=== PATIENT | female | born 1965 | race Caucasian/White ===

== ENCOUNTER 2016-08-04 23:14 | Inpatient (IN) | payer MEDICAID ==
[~2016-08-04] VITALS: Ht 147.3 cm; Wt 62.1 kg
[~2016-08-04 23:14] MED LIST: NORCO 5/325 MG1 TAB PO; ZOFRAN8 MG PO
[2016-08-04 23:31] VITALS: BP 160/60
[2016-08-05] VITALS (8 sets, daily range): BP systolic 89–132; BP diastolic 54–71
--- NOTE | 2016-08-05 00:33 | NUR ---
Patient to bed 07.
--- NOTE | 2016-08-05 00:34 | NUR ---
PATIENT PRESENTS TO ED WITH DIZZINESS AND FLANK PAIN X 1 WEEK . PT DENIES N/V/D; SKIN IS PINK/WARM/DRY; AAOX4 WITH EVEN AND STEADY GAIT; LUNGS CLEAR BL; HR EVEN AND REGULAR; PT DENIES ANY FEVER, CP, SOB, OR COUGH AT THIS TIME; PATIENT STATES PAIN OF 5/10 AT THIS TIME; VSS; PATIENT POSITIONED FOR COMFORT; HOB ELEVATED; BEDRAILS UP X2; BED DOWN. ER MD MADE AWARE OF PT STATUS.
--- NOTE | 2016-08-05 00:52 | NUR ---
Dr. Cruz evaluating patient at bedside.
[2016-08-05] MEDS ORDERED: NACL 0.9% 1,000 ML IV SCH ×3 (00:57→16:05)
[2016-08-05] MEDS ORDERED: KETOROLAC 30 MG/ML VIAL IVP ONE (01:00)
[2016-08-05] MEDS ORDERED: ONDANSETRON 4 MG/2 ML VIAL IVP ONE (01:00)
--- NOTE | 2016-08-05 01:27 | NUR ---
Patient taken to CT via wheelchair per tech.
--- NOTE | 2016-08-05 01:35 | NUR ---
Patient back from CT via wheelchair per tech.
[2016-08-05] MEDS ORDERED: LEVOFLOXACIN 500 MG/D5W PREMIX 100 ML IV ONE (02:05)
[2016-08-05] MEDS ORDERED: MORPHINE SULFATE 2 MG/ML SYR IVP PRN (04:10)
[2016-08-05] MEDS ORDERED: ONDANSETRON 4 MG/2 ML VIAL IVP PRN (04:10)
--- NOTE | 2016-08-05 04:25 | NUR ---
XRAY AT BEDSIDE.
--- NOTE | 2016-08-05 05:10 | NUR ---
Patient will be admitted to care of DR FONSECA. Admited to TELE 119A. Will go to room 119A . Belongings list completed. Report to LOIS GONZALES .
--- NOTE | 2016-08-05 05:14 | NUR ---
Patient being taken to telemetry 119A via jaime hobbs and RN.
[2016-08-05] MEDS: NACL 0.9% 1,000 ML IV SCH ×4 (06:00→22:27)
--- NOTE | 2016-08-05 06:15 | NUR ---
ADMITTED 51Y.O.F FROM ER.PLACED ON BED.ORIENTED TO ROOM.CALL SYSTEM EXPLAINED AND IN REACH.PT IS AWAKE ALERT AND ORIENTED.RESP.UNLABORED.TELEMETRY APPLIED AND SHOWING ST.SL PATENT IN RT.AC W/O REDNESS OR EDEMA AT SITE.IVF OF NS AT 100ML/H STARTED AND INFUSING WELL.INITIAL ASSESSMENT DONE.CARE PLAN DISCUSSED W/PT.VERBALIZED UNDERSTANDING.NO C/O PAIN AT TIME OF ADMISSION.VS STABLE.NO FEVER.SKIN IS INTACT.
--- NOTE | 2016-08-05 07:07 | NUR ---
RECEIVED PT FROM CHRISTIAN GRANT AWAKE AND LYING ON BED, AAOX4 YI SPEAKING, NO S/S OF RESPIRATORY DISTRESS OR DISCOMFORT, SKIN IS INTACT. WITH OV ACCESS ON RIGHT AC 20G INFUSING FLUIDS WELL. PT COMPLAINED OF PAIN AND NAUSEA. WILL MEDICATE WITH MORPHINE AND ZOFRAN. DISCUSSED PLAN OF CARE, PT VERBALIZED UNDERSTANDING. CALL LIGHT WITHIN REACH, WILL CONTINUE TO MONITOR.
--- NOTE | 2016-08-05 07:17 | NUR ---
REPORT GIVEN TO MARY RN.PT'S CONDITION IS STABLE.IVF IS IN PROGRESS.
--- NOTE | 2016-08-05 07:35 | NUR ---
MORPHINE AND ZOFRAN GIVEN VIA IVP, WILL REASSESS.
--- NOTE | 2016-08-05 09:28 | NUR ---
PT ASLEEP, ALL NEEDS MET AT THIS TIME. WILL CONTINUE TO MONITOR.
--- NOTE | 2016-08-05 10:31 | NUR ---
NOTIFIED DR. CARSON OF PATIENT'S HEARTRATE OF 127. MD TO SEE THE PATIENT.
[2016-08-05] MEDS: ACETAMINOPHEN 325 MG TAB PO PRN ×2 (11:46→20:08)
[2016-08-05] MEDS: HYDROcodone/APAP 5/325 MG 1 TAB TAB PO PRN ×2 (11:46→17:38)
--- NOTE | 2016-08-05 11:48 | NUR ---
PT TEMPERATURE AT 101.4F, TYLENOL GIVEN PRN. WITH DAUGHTERS AT BEDSIDE. COOLING MEASURES DONE. WILL CONTINUE TO MONITOR.
--- NOTE | 2016-08-05 11:50 | NUR ---
DR. CARSON NOTIFIED OF FEVER.
--- NOTE | 2016-08-05 13:22 | NUR ---
TEMPERATURE RECHECKED-- 99.7F. WILL CONTINUE TO MONITOR.
--- NOTE | 2016-08-05 15:10 | NUR ---
TEMPERATURE RECHECKED-- 98.7F. PT RESTING COMFORTABLY, NO COMPLAINTS AT THIS TIME. WILL CONTINUE TO MONITOR.
--- NOTE | 2016-08-05 15:45 | NUR ---
BP AT 89/54 MAP 66. LEGS ELEVATED, WILL RECHECK BP
--- NOTE | 2016-08-05 16:05 | NUR ---
BP RECHECKED-- . DR. CARSON INFORMED, WILL CARRY OUT NEW ORDERS.
--- NOTE | 2016-08-05 17:42 | NUR ---
NOTIFIED OF BP 114/65. WILL CARRY OUT NEW ORDERS. COMPLAINED OF PAIN, ADMINISTERED NORCO. WILL REASSESS
--- NOTE | 2016-08-05 17:46 | NUR ---
DR. VIVAS AT BEDSIDE.
--- NOTE | 2016-08-05 19:25 | NUR ---
ENDORSED PT TO SANJUANITA CORREA IN STABLE CONDITION FOR CONTINUITY OF CARE
--- NOTE | 2016-08-05 19:26 | NUR ---
RECD. RESTING IN BED, AWAKE, A/OX4. RESPIRATION EVEN AND UNLABORED. IV OF NS AT 150 ML/HR INFUSING, RIGHT AG G20. NO COMPLAINT OF PAIN 0/10. AMBULATORY TO THE BR. PLAN OF CARE FOR THE SHIFT DISCUSSED. VERBALIZED UNDERSTANDING. FAMILY AT THE BEDSIDE.
--- NOTE | 2016-08-05 19:59 | NUR ---
Patient's Plan of Care was discussed and reviewed with DRAMATIC COACH: SUNNY SÁNCHEZ
--- NOTE | 2016-08-05 20:08 | NUR ---
WITH FEVER, T - 101.1, MEDICATED WITH TYLENOL ORDERED. COOLING MEASURES APPLIED.
--- NOTE | 2016-08-05 21:10 | NUR ---
FEELING BETTER. TEMPERATURE - 99.0, WILL CONTINUE TO MONITOR.
--- NOTE | 2016-08-05 22:00 | NUR ---
AMBULATED FROM THE BR. TEMPERATURE CHECKED - 98.4.
[2016-08-06] VITALS: BP 146/65
--- NOTE | 2016-08-06 00:50 | NUR ---
WITH CHILLS, TEMPERATURE CHECKED BU ORAL THERMOMETER - 98.6. MADE COMFORTABLE WITH BLANKETS. WILL CONTINUE TO MONITOR.
[2016-08-06] MEDS: HYDROcodone/APAP 5/325 MG 1 TAB TAB PO PRN ×4 (00:59→23:07)
[2016-08-06 04:00] VITALS: BP 119/70
--- NOTE | 2016-08-06 04:00 | NUR ---
RESTING IN BED, AWAKE. TEMPERATURE - 99.5. DENIES PAIN 0/10.
[2016-08-06] MEDS: NACL 0.9% 1,000 ML IV SCH ×3 (05:28→19:52)
--- NOTE | 2016-08-06 07:15 | NUR ---
CONDITION REMAIN STABLE. ENDORSED TO CHRISTIAN ISRAEL FOR CONTINUITY OF CARE.
--- NOTE | 2016-08-06 07:20 | NUR ---
RECEIVED REPORT FROM SANJUANITA CORREA. PT IS A/OX4, AMBULATORY, IV RT AC, PATENT, INTACT, INFUSING WELL, SKIN IS INTACT, NO S/S OF RESPIRATORY DISTRESS OR DISCOMFORT NOTED, SAFETY/FALL PRECAUTIONS IN PLACE, DISCUSSED PLAN OF CARE WITH PT, PT VERBALIZED UNDERSTANDING, ORIENTED PT TO ROOM, CALL LIGHT WITHIN REACH, WILL CONTINUE TO MONITOR.
[2016-08-06] MEDS ORDERED: NACL 0.9% 500 ML IV SCH (07:25)
--- NOTE | 2016-08-06 07:43 | NUR ---
PATIENT HAS BEEN SCREENED AND CATEGORIZED HIGH NUTRITION RISK. PATIENT WILL BE SEEN WITHIN 1-2 DAYS OF ADMISSION. 08/05/16-08/06/[address]
[2016-08-06 08:00] VITALS: BP 140/74
[2016-08-06] MEDS: LACTOBACILLUS RHAMNOSUS GG 1 EACH CAP PO SCH (08:02)
--- NOTE | 2016-08-06 08:02 | NUR ---
DUE MEDICATIONS GIVEN. PT TOLERATED WELL. DR. ZAMORA IN THE ROOM WITH THE PT, CALL LIGHT WITHIN REACH, WILL CONTINUE TO MONITOR.
[2016-08-06] MEDS: LEVOFLOXACIN 750 MG/D5W PREMIX 150 ML IV SCH (08:03)
[2016-08-06] MEDS: ACETAMINOPHEN 325 MG TAB PO PRN ×3 (08:03→19:04)
--- NOTE | 2016-08-06 10:15 | NUR ---
PT RESTING IN BED, NO S/S OF RESPIRATORY DISTRESS OR DISCOMFORT NOTED, CALL LIGHT WITHIN REACH, WILL CONTINUE TO MONITOR.
[2016-08-06 12:00] VITALS: BP 124/73
--- NOTE | 2016-08-06 12:00 | NUR ---
PT RESTING IN BED, FAMILY IS AT BEDSIDE. CALL LIGHT WITHIN REACH, WILL CONTINUE TO MONITOR.
--- NOTE | 2016-08-06 12:47 | NUR ---
08/06/16 RD INITIAL ASSESSMENT COMPLETED PLEASE REFER TO NUTRITION ASSESSMENT UNDER CARE ACTIVITY FOR ESTIMATED NUTRITIONAL NEEDS. RD RECOMMENDATIONS: 1. CONTINUE ON REGULAR DIET TOLERATED. 2. ENCOURAGE INCREASED PO INTAKE. 3. RD WILL MONITOR GLUCOSE LEVELS. 4. RD WILL F/U 3-5 DAYS; MODERATE RISK. STEPHAN HAYNES RD
--- NOTE | 2016-08-06 13:38 | NUR ---
PT COMPLAINED OF A 7/10 PAIN. WILL MEDICATE WITH PRN PAIN MEDICATION AT THIS TIME.
--- NOTE | 2016-08-06 15:10 | NUR ---
PT RESTING IN BED, FAMILY IS AT BEDSIDE, INFORMED PT TO LET ME KNOW WHEN URINE WAS COLLECTED IN THE HAT BECAUSE URINE NEEDS TO BE STRAINED, PT VERBALIZED UNDERSTANDING, CALL LIGHT WITHIN REACH, WILL CONTINUE TO MONITOR.
[2016-08-06 16:00] VITALS: BP 120/73
--- NOTE | 2016-08-06 17:00 | NUR ---
PT IS SLEEPING AT THIS TIME, FAMILY IS AT BEDSIDE, CALL LIGHT WITHIN REACH, WILL CONTINUE TO MONITOR.
--- NOTE | 2016-08-06 18:24 | NUR ---
PT COMPLAINED OF A 7/10 ACHING PAIN, WILL MEDICATE WITH PRN PAIN MEDICATION AT THIS TIME.
--- NOTE | 2016-08-06 19:06 | NUR ---
ENDORSED PT TO CHRISTIAN ROGERS. FOR CONTINUITY OF CARE. PT STABLE AT THIS TIME.
--- NOTE | 2016-08-06 19:25 | NUR ---
RECEIVED PT AWAKE, AAOX4, BELARUSIAN SPEAKING ONLY, DENIES ANY PAIN BUT COMPLAINING OF CHILLS, VITAL SIGNS TAKEN, TEMP-101.1, MEDICATED ALREADY BY AM NURSE WITH TYLENOL, EXCESS BLANKET REMOVED AND COOLING MEASURES PROVIDED, IVF INFUSING WELL, POC DISCUSSED, FAMILY MEMBERS AT BEDSIDE, CALL LIGHT WITHIN REACH.
[2016-08-06 20:00] VITALS: BP 142/64
--- NOTE | 2016-08-06 20:30 | NUR ---
TEMP RECHECKED-100.0, CONTINUE COOLING MEASURES, ALL NEEDS ATTENDED.
--- NOTE | 2016-08-06 21:20 | NUR ---
PT AMBULATORY TO BR AND VOIDED FREELY, STRAIN URINE, NO STONE FOUND, CONTINUE COOLING MEASURES, MONITORED CLOSELY.
--- NOTE | 2016-08-06 23:10 | NUR ---
TEMP-98.5, MEDICATED PRN FOR PAIN WITH NORCO, IVF INFUSING WELL, FAMILY MEMBER AT BEDSIDE, CONTINUE TO MONITOR CLOSELY.
[2016-08-07] VITALS: BP 120/77
[2016-08-07] MEDS: NACL 0.9% 1,000 ML IV SCH ×4 (01:58→23:32)
[2016-08-07] MEDS ORDERED: LEVOFLOXACIN 750 MG/D5W PREMIX 150 ML IV SCH (02:00)
[2016-08-07] MEDS: HYDROcodone/APAP 5/325 MG 1 TAB TAB PO PRN ×4 (03:58→23:27)
[2016-08-07 04:00] VITALS: BP 138/76
--- NOTE | 2016-08-07 04:00 | NUR ---
PT AWAKE, VITAL SIGNS TAKEN, TEMP-99.9, COMPLAINING OF FLANK PAIN, NORCO PO GIVEN, IVF INFUSING WELL, MONITORED CLOSELY.
--- NOTE | 2016-08-07 05:51 | NUR ---
PT SLEEPING, EASILY AROUSABLE, DENIES ANY PAIN, ORAL TEMP RECHECKED WITH 98.8, IVF INFUSING WELL, MONITORED CLOSELY.
--- NOTE | 2016-08-07 07:10 | NUR ---
PT AWAKE, NO SIGNS OF DISTRESS, REPORT GIVEN TO CHRISTIAN SARGENT FOR CONTINUITY OF CARE.
--- NOTE | 2016-08-07 07:11 | NUR ---
RECEIVED REPORT FROM CHRISTIAN ROGERS. PT IS SLEEPING BUT EASILY AWAKEN, AAO X4, SKIN INTACT, IV ON RIGHT AC PATENT AND INTACT INFUSING FLUID WELL, INITIAL ASSESSMENT DONE, NO S/S OF RESPIRATORY DISTRESS OR DISCOMFORT NOTED, DISCUSSED PLAN OF CARE. PT VERBALIZED UNDERSTANDING, SAFETY/FALL PRECAUTION ENFORCED, CALL LIGHT WITHIN REACH, FAMILY MEMBER AT BEDSIDE, WILL CONTINUE TO MONITOR.
[2016-08-07] MEDS ORDERED: POTASSIUM CHLORIDE 10 MEQ TABER PO SCH ×2 (07:30→17:00)
[2016-08-07 07:43] VITALS: BP 135/71
[2016-08-07] MEDS: LACTOBACILLUS RHAMNOSUS GG 1 EACH CAP PO SCH (08:24)
[2016-08-07] MEDS: LEVOFLOXACIN 750 MG/D5W PREMIX 150 ML IV SCH (08:25)
--- NOTE | 2016-08-07 08:30 | NUR ---
DUE MEDS GIVEN, PT TOLERATED WELL, ALL NEEDS MET AT THIS TIME, FAMILY MEMBERS AT BEDSIDE, CALL LIGHT WITHIN REACH, WILL CONTINUE TO MONITOR.
[2016-08-07] MEDS ORDERED: SODIUM PHOS / POTASSIUM PHOS 1 PKT PDR PO SCH (09:30)
--- NOTE | 2016-08-07 11:55 | NUR ---
PT IS SITTING ON THE CHAIR TALKING TO FAMILY MEMBER AT BEDSIDE, NO S/S OF RESPIRATORY DISTRESS OR DISCOMFORT NOTED, ALL NEEDS MET AT THIS TIME, CALL LIGHT WITHIN REACH, WILL CONTINUE TO MONITOR.
[2016-08-07 12:00] VITALS: BP 140/88
--- NOTE | 2016-08-07 13:23 | NUR ---
PT IS IN THE RESTROOM AT THIS TIME, FAMILY MEMBER AT BEDSIDE, WILL CONTINUE TO MONITOR.
--- NOTE | 2016-08-07 15:20 | NUR ---
PT IS SLEEPING AT THIS TIME, NO S/S OF RESPIRATORY DISTRESS OR DISCOMFORT NOTED, CALL LIGHT WITHIN REACH, FAMILY MEMBER AT BEDSIDE, WILL CONTINUE TO MONITOR.
[2016-08-07 16:00] VITALS: BP 125/69
[2016-08-07] MEDS: SODIUM PHOS / POTASSIUM PHOS 1 PKT PDR PO SCH (16:35)
[2016-08-07] MEDS ORDERED: PIPER/TAZO 3.375GM/D5W PREMIX 50 ML IV SCH (16:35)
--- NOTE | 2016-08-07 17:21 | NUR ---
NEW IV STARTED ON LEFT HAND 24G, PT TOLERATED WELL, REMOVED IV ON RIGHT AC, CATHETER TIP INTACT.
[2016-08-07] MEDS: PIPER/TAZO 3.375GM/D5W PREMIX 50 ML IV SCH ×2 (17:25→23:28)
--- NOTE | 2016-08-07 19:13 | NUR ---
ENDORSED PT TO CHRISTIAN ROGERS FOR CONTINUITY OF CARE. PT IS STABLE AT THIS TIME.
--- NOTE | 2016-08-07 19:20 | NUR ---
RECEIVED PT AWAKE SITTING ON BEDSIDE CHAIR WITH FAMILY MEMBER IN THE ROOM, VITAL SIGNS STABLE, AFEBRILE, DENIES ANY PAIN, IVF INFUSING WELL, CONTINUE TO STRAIN ALL URINE, POC DISCUSSED, CALL LIGHT WITHIN REACH.
[2016-08-07 20:00] VITALS: BP 138/89
--- NOTE | 2016-08-07 22:15 | NUR ---
ROUNDED ON PT, SLEEPING, NO SIGNS OF DISTRESS, IVF INFUSING WELL, MONITORED CLOSELY.
[2016-08-07] MEDS: ACETAMINOPHEN 325 MG TAB PO PRN (23:31)
--- NOTE | 2016-08-07 23:35 | NUR ---
PT AWAKE, VITALS SIGNS TAKEN, TEMP-100.1, MEDICATED PRN FOR PAIN WITH NORCO AND TYLENOL GIVEN FOR FEVER, COOLONG MEASURES INITIATED, DUE IV ANTIBIOTIC ADMINISTERED, CONTINUE TO MONITOR CLOSELY.
[2016-08-08] VITALS: BP 139/83
--- NOTE | 2016-08-08 03:40 | NUR ---
PT SLEEPING, EASILY AROUSABLE, VITAL SIGNS STABLE, AFEBRILE, DENIES ANY PAIN, MONITORED CLOSELY.
[2016-08-08 04:00] VITALS: BP 138/73
[2016-08-08] MEDS: PIPER/TAZO 3.375GM/D5W PREMIX 50 ML IV SCH ×2 (05:18→12:00)
--- NOTE | 2016-08-08 07:10 | NUR ---
PT AWAKE, NO DISTRESS NOTED, REPORT GIVEN TO CHRISTIAN SARGENT FOR CONTINUITY OF CARE.
--- NOTE | 2016-08-08 07:11 | NUR ---
RECEIVED REPORT FROM CHRISTIAN ROGERS. PT IS AWAKE RESTING ON BED, AAO X4, SKIN INTACT, IV ON LEFT HAND PATENT AND INTACT INFUSING FLUID WELL, INITIAL ASSESSMENT DONE, NO S/S OF RESPIRATORY DISTRESS OR DISCOMFORT NOTED, DISCUSSED PLAN OF CARE, PT VERBALIZED UNDERSTANDING, SAFETY/FALL PRECAUTION ENFORCED, CALL LIGHT WITHIN REACH, WILL CONTINUE TO MONITOR.
[2016-08-08 08:00] VITALS: BP 146/96
[2016-08-08] MEDS: SODIUM PHOS / POTASSIUM PHOS 1 PKT PDR PO SCH (08:12)
--- NOTE | 2016-08-08 08:13 | NUR ---
DUE MEDS GIVEN, PT TOLERATED WELL, CALL LIGHT WITHIN REACH, WILL CONTINUE TO MONITOR.
[2016-08-08] MEDS ORDERED: LACTOBACILLUS RHAMNOSUS GG 1 EACH CAP PO SCH (09:00)
[2016-08-08] MEDS: HYDROcodone/APAP 5/325 MG 1 TAB TAB PO PRN (09:02)
[2016-08-08] MEDS ORDERED: FLORASTOR250 MG PO (10:54)
[2016-08-08] MEDS ORDERED: LEVAQUIN750 MG PO (10:54)
--- NOTE | 2016-08-08 11:05 | NUR ---
PT IS RESTING ON BED TALKING TO FAMILY MEMBERS AT BEDSIDE, ALL NEEDS MET AT THIS TIME, CALL LIGHT WITHIN REACH, WILL CONTINUE TO MONITOR.
--- NOTE | 2016-08-08 11:50 | NUR ---
DISCHARGE INSTRUCTIONS AND PRESCRIPTION GIVEN, PT VERBALIZED UNDERSTANDING, ALL QUESTIONS ANSWERED, REMOVED TELE, ID WRISTBAND AND IV, CATHETER TIP INTACT, PT IS CHANGING CLOTHES AT THIS TIME, WILL CONTINUE TO MONITOR.
[2016-08-08] MEDS: NACL 0.9% 1,000 ML IV SCH (11:52)
--- NOTE | 2016-08-08 12:30 | NUR ---
PT LEFT THE UNIT VIA WHEELCHAIR ACCOMPANIED BY FAMILY MEMBERS. PT STABLE UPON DISCHARGE.
[2016-08-08 12:38] VITALS: BP 145/87
== END 2016-08-08 12:30 | disposition home or self-care (01) | DRG 720 ==
LOC: MED 23:14 → MTU 08-05 04:09
PROVIDERS: ADMIT Family Medicine; ATTEND Family Medicine
DX: A41.9 Sepsis, unspecified organism (principal); N17.0 Acute kidney failure with tubular necrosis; E43 Unspecified severe protein-calorie malnutrition; N12 Tubulo-interstitial nephritis, not specified as acute or chronic; D64.9 Anemia, unspecified; R73.03 Prediabetes; E87.6 Hypokalemia; K21.9 Gastro-esophageal reflux disease without esophagitis; E83.39 Other disorders of phosphorus metabolism; Z68.28 Body mass index [BMI] 28.0-28.9, adult; Z87.442 Personal history of urinary calculi; Z79.899 Other long term (current) drug therapy

== ENCOUNTER 2017-06-10 10:30 | Emergency (ER) | payer MEDICAID ==
[~2017-06-10] VITALS: Ht 148 cm; Wt 65.3 kg
[~2017-06-10 10:30] MED LIST changes: +ACET-8386 PO; +FLOR250 PO; +LEVO750T2 PO; -NORCO 5/325 MG1 TAB PO; +ONDA8TAB PO; -ZOFRAN8 MG PO
[2017-06-10 10:37] VITALS: BP 142/65
--- NOTE | 2017-06-10 12:00 | NUR ---
52f bib self with c/o 5/10 "sharp" intermittent bl lower abd pain that radiates to bl lower back. Pt denies any n/v/d or fevers. Pt is aox4, with steady gait. RR are even and unlabored. NAD. Pt positioned to comfort, bed down. Er md amado by bedside. NAD. Will continue to monitor.
--- NOTE | 2017-06-10 12:30 | NUR ---
pt to ct via ct via w/c accompanied by x ray service technician
--- NOTE | 2017-06-10 12:44 | NUR ---
pt returned from ct via w/c accompanied by software technical lead
[2017-06-10 13:13] LABS: BASOPHILS # (AUTO) 0.1 K/uL (0.00-0.22); BASOPHILS % (AUTO) 1.3 % (0.0-2.0); EOSINOPHILS # (AUTO) 0.1 K/uL (0-0.4); EOSINOPHILS % (AUTO) 0.6 % (0.0-4.0); HEMATOCRIT 37.8 % (36-48); LYMPHOCYTES # (AUTO) 2.1 K/uL (2.5-16.5); MEAN CORPUSCULAR HEMOGLOBIN 30 pg (27-31); MEAN CORPUSCULAR HGB CONC 35 g/dL (33-37); MEAN CORPUSCULAR VOLUME 86 fL (80-94); MONOCYTES # (AUTO) 0.4 K/uL (0.8-1.0); MONOCYTES % (AUTO) 4.9 % (1.7-9.3); NEUTROPHILS # (AUTO) 6.2 K/uL (1.8-7.7); NEUTROPHILS % (AUTO) 69.2 % (42.2-75.2); PLATELET COUNT (AUTO) 255 K/uL (140-450); RED BLOOD CELL COUNT(AUTO) 4.41 MIL/uL (4.20-5.40); RED CELL DISTRIBUTION WIDTH 12.6 % (11.6-13.7); WHITE BLOOD COUNT (AUTO) 8.9 K/uL (4.8-10.8)
[2017-06-10 13:36] LABS: APPEARANCE,URINE TURBID (CLEAR); BILIRUBIN,URINE NEGATIVE (NEGATIVE); BLOOD, URINE NEGATIVE (NEGATIVE); COLOR,URINE YELLOW (YELLOW); LEUKOCYTE ESTERASE ,URINE NEGATIVE (NEGATIVE); NITRITE, URINE NEGATIVE (NEGATIVE); PH,URINE 5.5 (5.0-9.0); UGLUCOSE NEGATIVE (NEGATIVE)
[2017-06-10 13:52] LABS: ALBUMIN 3.5 g/dL (3.4-5.0); TOTAL BILIRUBIN 0.6 mg/dL (0.0-1.0)
[2017-06-10 13:53] LABS: ANION GAP 13.5 (8-16); CARBON DIOXIDE 27.4 mmol/L (21-32); CREATININE 0.6 mg/dL (0.6-1.3); POTASSIUM 3.9 mmol/L (3.5-5.1)
[2017-06-10] MEDS ORDERED: LEVOFLOXACIN 500 MG TAB PO ONE (14:20)
[2017-06-10] MEDS ORDERED: metroNIDAZOLE 250 MG TAB PO ONE (14:20)
[2017-06-10 14:53] VITALS: BP 128/75
--- NOTE | 2017-06-10 14:53 | NUR ---
Patient discharged with v/s stable. Written and verbal after care instructions given and explained. Patient alert, oriented and verbalized understanding of instructions. Ambulatory with steady gait. All questions addressed prior to discharge. ID band removed. Patient advised to follow up with PMD. Rx of Colace, Flagyl, Levaquin, and [employer] [facility] [facility] given. Patient educated on indication of medication including possible reaction and side effects. Opportunity to ask questions provided and answered.
== END 2017-06-10 14:53 | disposition home or self-care (01) ==
LOC: MED 10:30
DX: K57.92 Diverticulitis of intestine, part unspecified, without perforation or abscess without bleeding (principal); R03.0 Elevated blood-pressure reading, without diagnosis of hypertension
CPT/HCPCS: 36415; 80053; 81003; 83690; 85025; 99285